=== PATIENT | male | born 1980 | race Caucasian/White ===

== ENCOUNTER 2018-02-24 12:41 | Emergency (ER) | payer MEDICAID ==
[2018-02-24] MEDS: KETOROLAC 30 MG INJ IM (13:32)
[2018-02-24] MEDS: LIDOCAINE 4% CR TOP (13:40)
== END 2018-02-24 15:25 | disposition home or self-care (01) ==
LOC: FTE 12:41
DX: S60.111A Contusion of right thumb with damage to nail, initial encounter (principal); W23.0XXA Caught, crushed, jammed, or pinched between moving objects, initial encounter; Y92.9 Unspecified place or not applicable
CPT/HCPCS: 73140; 96372; 99284-25

== ENCOUNTER 2018-02-27 10:27 | Emergency (ER) | payer MEDICAID | END 2018-02-27 13:06 | disposition home or self-care (01) | LOC: FTE 10:27 | DX: Z48.01 Encounter for change or removal of surgical wound dressing (principal) | CPT/HCPCS: 99281; Z7502 ==